=== PATIENT | female | born 2000 | race Caucasian/White ===

== ENCOUNTER 2024-10-22 09:29 | Emergency (ER) | payer SELFPAY ==
[2024-10-22 09:35] VITALS: BP 135/90; PULSE 112; RESP 18; TEMP 36.7; O2SAT 98; BMI 39.6
--- NOTE | 2024-10-22 09:39 | W.ED.CHESTPA ---
HPI - Chest Pain General: Chief Complaint: Chest Pain Stated Complaint: Chest Pain Time Seen by Provider: 10/22/24 09:30 History of Present Illness: 24 yo female patient presents to ER with complaints of chest pain, SOB and dizziness. Onset this am. Pt states she does not have any cariac hx or hx of PE. Pt is requesting urine preg test. Related Data Allergies Allergy/AdvReac Type Severity Reaction Status Date / Time No Known Allergies Allergy Verified 10/22/24 09:37 Review of Systems General: Reports: 10 or more systems reviewed and unremarkable except in HPI and below Physical Exam Const: COMMON NORMALS: no acute distress, average body habitus, patient oriented x3 and no limitations Neck/C-Spine: COMMON NORMALS: no JVD Chest: COMMONS NORMALS: normal inspection of the chest and normal palpation of entire chest wall Resp: COMMON NORMALS: normal respiratory effort, No retractions, No use of accessory muscles and clear to auscultation bilaterally AUSCULTATION: clear to auscultation bilaterally Cardio: COMMON NORMALS: no JVD, regular rate (tachy) and regular rhythm RATE: regular rate (tachy) RHYTHM: regular rhythm GI: COMMON NORMALS: Normal to inspection, nondistended, normoactive bowel sounds present, Soft to palpation and non-tender PALPATION: Yes Soft to palpation : COMMON NORMALS: Yes no CVA tenderness BLADDER/KIDNEY EXAM: Yes no CVA tenderness Back/Pelvis: COMMON NORMALS: no CVA tenderness Neuro: COMMON NORMALS: patient oriented x3 Skin: COMMON NORMALS: no rashes or lesions noted and turgor normal GENERAL SKIN EXAM: no rashes or lesions noted, elasticity normal and turgor normal Course Vital Signs: Vital signs: Vital Signs Temperature 98.1 F 10/22/24 09:35 Pulse Rate 97 10/22/24 10:06 Respiratory Rate 18 10/22/24 09:35 Blood Pressure 106/79 10/22/24 10:06 Pulse Oximetry 100 10/22/24 10:06 Oxygen Delivery Me thod Room Air 10/22/24 09:35 MDM - Chest Pain Medical Decision Making AMA Lab Data 10/22/24 09:30 10/22/24 09:30 Radiology Impressions Chest X-Ray 10/22/24 10:35 IMPRESSION: No acute findings. Laboratory Results WBC 21.75 10^3/uL (3.29-11.43) H 10/22/24 09:30 RBC 4.67 10^6/uL (3.85-5.65) 10/22/24 09:30 Hgb 13.60 g/dL (11.27-16.99) 10/22/24 09:30 Hct 40.9 % (36-47) 10/22/24 09:30 MCV 87.6 fl (85-98) 10/22/24 09:30 MCH 29.1 pg (27-33) 10/22/24 09:30 MCHC 33.3 g/dL (30-55) 10/22/24 09:30 RDW 13.6 % (12.1-15.1) 10/22/24 09:30 Plt Count 323 10^3/cmm (157-399) 10/22/24 09:30 MPV 10.6 fL (7.4-10.4) H 10/22/24 09:30 Neut % (Auto) 78.3 % 10/22/24 09:30 Lymph % (Auto) 11.8 % 10/22/24 09:30 [place] % (Auto) 8.6 % 10/22/24 09:30 Eos % (Auto) 0.4 % 10/22/24 09:30 Baso % (Auto) 0.3 % 10/22/24 09:30 Neut # (Auto) 17.05 10^3/uL (1.8-7.7) H 10/22/24 09:30 Lymph # (Auto) 2.6 10^3/uL (0.8-4.8) 10/22/24 09:30 [place] # (Auto) 1.9 10^3/uL (0.2-0.9) H 10/22/24 09:30 Eos # (Auto) 0.1 10^3/uL (0.0-0.8) 10/22/24 09:30 Baso # (Auto) 0.1 10^3/uL (0.0-0.1) 10/22/24 09:30 Nucleated RBC % (auto) 0 % 10/22/24 09:30 Nucleated RBCs # 0.0 /100WBC 10/22/24 09:30 D-Dimer <= 0.27 ug/mLFEU (0-0.59) 10/22/24 09:30 Sodium 135 mmol/L (136-145) L 10/22/24 09:30 Potassium 4.3 mmol/L (3.5-5.1) 10/22/24 09:30 Chloride 98 mmol/L (98-107) 10/22/24 09:30 Carbon Dioxide 24 mmol/L (22-29) 10/22/24 09:30 Anion Gap 17.3 (5-19) 10/22/24 09:30 BUN 9 mg/dL (6-20) 10/22/24 09:30 Creatinine 0.6 mg/dL (0.5-0.9) 10/22/24 09:30 GFR Calculation 120.8 mL/min (90-130) 10/22/24 09:30 Glucose 101 mg/dL (65-115) 10/22/24 09:30 Calculated Osmolality 279 mOsm/kg (285-295) L 10/22/24 09:30 Calcium 9.6 mg/dL (8.5-10.5) 10/22/24 09:30 Total Bilirubin 1.1 mg/dL (0.15-1.2) 10/22/24 09:30 AST 15 U/L (0-32) 10/22/24 09:30 ALT 30 U/L (0-33) 10/22/24 09:30 Alkaline Phosphatase 93 U/L (35-105) 10/22/24 09:30 Troponin T Baseline < 6 ng/L (0-10) 10/22/24 09:30 Troponin T 120 Minute < 6.0 ng/L (0-10) 10/22/24 11:50 Delta Troponin T 0 ABS# (0-10) 10/22/24 11:50 Total Protein 7.3 g/dL (6.6-8.7) 10/22/24 09:30 Albumin 4.5 g/dL (3.5-5.2) 10/22/24 09:30 Globulin 2.8 g/dL (1.3-4.6) 10/22/24 09:30 Lipase 22 U/L (13-60) 10/22/24 09:30 HCG, Qual Negative (Negative) 10/22/24 10:20 Urine Color [place] (Yellow) A 10/22/24 10:20 Urine Appearance Clear (CLEAR) 10/22/24 10:20 Urine pH 8.0 (5-7) A 10/22/24 10:20 Ur Specific [place] 1.015 (1.005-1.030) 10/22/24 10:20 Urine Protein Negative (Negative) 10/22/24 10:20 Urine Glucose (UA) Negative (Normal) 10/22/24 10:20 Urine Ketones Trace (Negative) 10/22/24 10:20 Urine Blood Negative (Negative) 10/22/24 10:20 Urine Nitrate Negative (Negative) 10/22/24 10:20 Urine Bilirubin Negative (Negative) 10/22/24 10:20 Urine Urobilinogen 1.0 mg/dL (Negative) 10/22/24 10:20 Ur Leukocyte Esterase Trace (Negative) A 10/22/24 10:20 Urine RBC 0-2 /hpf (0-2) 10/22/24 10:20 Urine WBC 6-10 /hpf (0-5) 10/22/24 10:20 Ur Squamous Epith Cells 6-10 /hpf (0-5) 10/22/24 10:20 Amorphous Sediment Not Reportable 10/22/24 10:20 Urine Bacteria 1+ /hpf (NONE) H 10/22/24 10:20 Hyaline Casts 1.21 /lpf 10/22/24 10:20 No radiology studies performed this visit Discharge Plan Discharge Patient Disposition: Left Against Medical Advice Clinical Impression: Chest pain Condition: Stable Print Language: Lebanese Coding Level of Care Code ED Aws Software Development Engineer for Kosta Cardoza
--- NOTE | 2024-10-22 09:49 | ECG_ITS ---
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 Measurements Intervals [place] Rate: 113 P: 19 NM: 124 QRS: 30 QRSD: 93 T: 16 QT: 297 QTc: 408 Interpretive Statements SINUS TACHYCARDIA ABNORMAL RHYTHM ECG No previous ECG available for comparison Electronically Signed On 10-22-2024 10:01:11 CDT by Ellis Miller M.D. [email or web address]
[2024-10-22 09:57] LABS: Hematocrit 40.9 % (36-47); Hemoglobin 13.60 g/dL (11.27-16.99); Mean Corpuscular HGB Conc 33.3 g/dL (30-55); Mean Corpuscular Hemoglobin 29.1 pg (27-33); Mean Corpuscular Volume 87.6 fl (85-98); Nucleated Red Blood Cells % 0 %; Platelet Count 323 10^3/cmm (157-399); Red Blood Count 4.67 10^6/uL (3.85-5.65); White Blood Count 21.75 10^3/uL (3.29-11.43)
[2024-10-22 10:06] VITALS: BP 106/79; PULSE 97; O2SAT 100
[2024-10-22 10:10] LABS: Troponin(5th) Baseline < 6 ng/L (0-10)
[2024-10-22 10:11] LABS: Alanine Aminotransferase 30 U/L (0-33); Albumin Level 4.5 g/dL (3.5-5.2); Alkaline Phosphatase 93 U/L (35-105); Anion Gap 17.3 (5-19); Aspartate Amino Transferase 15 U/L (0-32); Blood Urea Nitrogen 9 mg/dL (6-20); Calcium 9.6 mg/dL (8.5-10.5); Carbon Dioxide 24 mmol/L (22-29); Chloride 98 mmol/L (98-107); Creatinine Clr Calc Pharmacy 155.7398; Globulin 2.8 g/dL (1.3-4.6); Glucose 101 mg/dL (65-115); Lipase 22 U/L (13-60); Osmolality Calculated 279 mOsm/kg (285-295); Potassium 4.3 mmol/L (3.5-5.1); Sodium 135 mmol/L (136-145); Total Protein 7.3 g/dL (6.6-8.7)
[2024-10-22 10:28] LABS: Glucose Urine UA Negative (Normal); Nitrate Urine Negative (Negative); Specific Gravity, Urine 1.015 (1.005-1.030)
[2024-10-22 10:33] LABS: Add Urine Microscopic? YES
--- NOTE | 2024-10-22 10:35 | XRR_ITS ---
PROCEDURE INFORMATION: Exam: XR Chest Exam date and time: 10/22/2024 10:37 AM Age: 24 years old Clinical indication: Shortness of breath; Additional info: SOB TECHNIQUE: Imaging protocol: Radiologic exam of the chest. Views: 1 view. COMPARISON: No relevant prior studies available. FINDINGS: Lungs: Unremarkable. No consolidation. Pleural spaces: Unremarkable. No pleural effusion. No pneumothorax. Heart/Mediastinum: Unremarkable. No cardiomegaly. Bones/joints: Unremarkable. XR/XR chest 1V portable [id number] IMPRESSION: No acute findings.
[2024-10-22 12:11] LABS: Troponin 5 2HR < 6.0 ng/L (0-10); Troponin 5 2HR Delta 0 ABS# (0-10)
--- NOTE | 2024-10-22 12:16 | ECG_ITS ---
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 Measurements Intervals [place] Rate: 111 P: 36 TN: 140 QRS: 40 QRSD: 96 T: 12 QT: 304 QTc: 414 Interpretive Statements SINUS TACHYCARDIA Compared to ECG 10/22/2024 09:32:42 No significant changes Electronically Signed On 10-22-2024 15:00:27 CDT by Damián Higgins M.D. [id number]
[2024-10-22 13:04] LABS: HCG Qualitative Urine. Negative (Negative)
--- NOTE | 2024-10-22 22:13 | ED_ITS ---
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 Laboratory Results WBC 21.75 10^3/uL (3.29-11.43) H 10/22/24 09:30 RBC 4.67 10^6/uL (3.85-5.65) 10/22/24 09:30 Hgb 13.60 g/dL (11.27-16.99) 10/22/24 09:30 Hct 40.9 % (36-47) 10/22/24 09:30 MCV 87.6 fl (85-98) 10/22/24 09:30 MCH 29.1 pg (27-33) 10/22/24 09:30 MCHC 33.3 g/dL (30-55) 10/22/24 09:30 RDW 13.6 % (12.1-15.1) 10/22/24 09:30 Plt Count 323 10^3/cmm (157-399) 10/22/24 09:30 MPV 10.6 fL (7.4-10.4) H 10/22/24 09:30 Neut % (Auto) 78.3 % 10/22/24 09:30 Lymph % (Auto) 11.8 % 10/22/24 09:30 [place] % (Auto) 8.6 % 10/22/24 09:30 Eos % (Auto) 0.4 % 10/22/24 09:30 Baso % (Auto) 0.3 % 10/22/24 09:30 Neut # (Auto) 17.05 10^3/uL (1.8-7.7) H 10/22/24 09:30 Lymph # (Auto) 2.6 10^3/uL (0.8-4.8) 10/22/24 09:30 [place] # (Auto) 1.9 10^3/uL (0.2-0.9) H 10/22/24 09:30 Eos # (Auto) 0.1 10^3/uL (0.0-0.8) 10/22/24 09:30 Baso # (Auto) 0.1 10^3/uL (0.0-0.1) 10/22/24 09:30 Nucleated RBC % (auto) 0 % 10/22/24 09:30 Nucleated RBCs # 0.0 /100WBC 10/22/24 09:30 D-Dimer <= 0.27 ug/mLFEU (0-0.59) 10/22/24 09:30 Sodium 135 mmol/L (136-145) L 10/22/24 09:30 Potassium 4.3 mmol/L (3.5-5.1) 10/22/24 09:30 Chloride 98 mmol/L (98-107) 10/22/24 09:30 Carbon Dioxide 24 mmol/L (22-29) 10/22/24 09:30 Anion Gap 17.3 (5-19) 10/22/24 09:30 BUN 9 mg/dL (6-20) 10/22/24 09:30 Creatinine 0.6 mg/dL (0.5-0.9) 10/22/24 09:30 GFR Calculation 120.8 mL/min (90-130) 10/22/24 09:30 Glucose 101 mg/dL (65-115) 10/22/24 09:30 Calculated Osmolality 279 mOsm/kg (285-295) L 10/22/24 09:30 Calcium 9.6 mg/dL (8.5-10.5) 10/22/24 09:30 Total Bilirubin 1.1 mg/dL (0.15-1.2) 10/22/24 09:30 AST 15 U/L (0-32) 10/22/24 09:30 ALT 30 U/L (0-33) 10/22/24 09:30 Alkaline Phosphatase 93 U/L (35-105) 10/22/24 09:30 Troponin T Baseline < 6 ng/L (0-10) 10/22/24 09:30 Troponin T 120 Minute < 6.0 ng/L (0-10) 10/22/24 11:50 Delta Troponin T 0 ABS# (0-10) 10/22/24 11:50 Total Protein 7.3 g/dL (6.6-8.7) 10/22/24 09:30 Albumin 4.5 g/dL (3.5-5.2) 10/22/24 09:30 Globulin 2.8 g/dL (1.3-4.6) 10/22/24 09:30 Lipase 22 U/L (13-60) 10/22/24 09:30 HCG, Qual Negative (Negative) 10/22/24 10:20 Urine Color [place] (Yellow) A 10/22/24 10:20 Urine Appearance Clear (CLEAR) 10/22/24 10:20 Urine pH 8.0 (5-7) A 10/22/24 10:20 Ur Specific [place] 1.015 (1.005-1.030) 10/22/24 10:20 Urine Protein Negative (Negative) 10/22/24 10:20 Urine Glucose (UA) Negative (Normal) 10/22/24 10:20 Urine Ketones Trace (Negative) 10/22/24 10:20 Urine Blood Negative (Negative) 10/22/24 10:20 Urine Nitrate Negative (Negative) 10/22/24 10:20 Urine Bilirubin Negative (Negative) 10/22/24 10:20 Urine Urobilinogen 1.0 mg/dL (Negative) 10/22/24 10:20 Ur Leukocyte Esterase Trace (Negative) A 10/22/24 10:20 Urine RBC 0-2 /hpf (0-2) 10/22/24 10:20 Urine WBC 6-10 /hpf (0-5) 10/22/24 10:20 Ur Squamous Epith Cells 6-10 /hpf (0-5) 10/22/24 10:20 Amorphous Sediment Not Reportable 10/22/24 10:20 Urine Bacteria 1+ /hpf (NONE) H 10/22/24 10:20 Hyaline Casts 1.21 /lpf 10/22/24 10:20 No radiology studies performed this visit Discharge Plan Discharge Patient Disposition: Left Against Medical Advice Clinical Impression: Chest pain Condition: Stable Print Language: Paraguayan Coding Level of Care Code ED Tablet Tester for Kosta Cardoza
== END 2024-10-22 13:35 | disposition left against medical advice (07) ==
PROVIDERS: Emergency Provider Registered Nurse
DX: R07.9 Chest pain, unspecified (principal); Z53.29 Procedure and treatment not carried out because of patient's decision for other reasons
CPT/HCPCS: 36415; 71045; 80053; 81001; 81025; 83690; 84484; 85025; 85378; 93005; 99285

== ENCOUNTER 2024-10-24 16:17 | Emergency (ER) | payer SELFPAY ==
[2024-10-24 16:55] VITALS: BP 112/57; PULSE 108; RESP 16; TEMP 37.4; O2SAT 98; BMI 40.2
[2024-10-24 18:08] LABS: Rapid Strep A Test Negative (Negative)
[2024-10-24 18:35] VITALS: BP 108/81; PULSE 100; RESP 16; TEMP 37.4; O2SAT 97
--- NOTE | 2024-10-24 22:32 | ED_ITS ---
HPI - Pediatric SOB/Dyspnea General: Chief Complaint: Upper Respiratory Infection Stated Complaint: sore throat Time Seen by Provider: 10/24/24 18:26 History of Present Illness: 24-year-old female patient presents to [facility] emergency department department complaining of sore throat with white patches. Patient states she has been running a low-grade fever. Patient denies any other symptoms patient denies any cough or congestion. Related Data Previous Rx's ?Medication ?Instructions ?Recorded amoxicillin 500 mg capsule 500 mg PO BID 10 days #20 c aps 10/24/24 Allergies Allergy/AdvReac Type Severity Reaction Status Date / Time No Known Allergies Allergy Verified 10/22/24 09:37 [facility] ED Female Reproductive History: Date of last menstrual period: 09/30/24 Pediatric Exam Const: Constitutional General: cooperative, healthy appearing, comfortable, no acute distress, well developed, alert and awake HENMT: Head: normal to inspection, normocephalic and atraumatic Ears: hearing grossly normal bilaterally, external ears normal and TM's normal bilaterally Nose: Normal external nose present and Normal nares present Face and Sinuses: normal facial exam and sinuses nontender Mouth: Normal oral and palatal mucosa present Throat: uvula midline and abnormal tonsil on the right erythema and exudates; tonsils abnormal Resp: Effort & Inspection: normal respiratory effort Auscultation: clear to auscultation bilaterally Cardio: Rate: regular rate Rhythm: regular rhythm Course Vital Signs: Vital signs: Vital Signs Temperature 99.4 F 10/24/24 18:35 Pulse Rate 100 10/24/24 18:35 Respiratory Rate 16 10/24/24 18:35 Blood Pressure 108/81 10/24/24 18:35 Pulse Oximetry 97 10/24/24 18:35 Oxygen Delivery Me thod Room Air 10/24/24 18:35 Medical Decision Making Medical Decision Making Patient is well appearing non toxic and in no acute distress. 24-year-old female patient presents to the emergency department department complaining of sore throat with white patches. Patient states she has been running a low-grade fever. Patient denies any other symptoms patient denies any cough or congestion. Pts findings are c/w tonsilitis given the degree of erythema and exedate and fever I will treat with antibiotics. there was not evidence of peritonsilar abscess and patient is managing secretions there is no evidence of hypoxia or meningeal signs. Lab Data Laboratory Results Group A Strep Rapid Negative (Negative) 10/24/24 17:03 No radiology studies performed this visit Discharge Plan Discharge Patient Disposition: Home Clinical Impression: Acute bacterial tonsillitis Condition: Stable Prescriptions: New amoxicillin 500 mg capsule 500 mg PO BID 10 Days Qty: 20 0RF Discharge Orders: Discharge ED (Routine); Ordered 10/24/24 Ordered By: Marylou Draper Discharge Diet: Advance as tolerated Discharge Activity: Increase activity as tolerated Patient Instructions: Strep Throat (DC), Opioid Safety, Pain Management, Patient Portal & Norma Instructions Activity Restrictions/Additional Instructions: Take meds as prescribed Return to ER if all your doctor if: You have a fever. You have a rash or ear pain. You have green, yellow-brown, or bloody mucus when you cough or blow your nose. You are not able to drink anything. You have questions or concerns about your condition or care. Follow up with PCP Print Language: Bahraini Coding Level of Care Code ED General Dentist/Owner for Kosta Cardoza
== END 2024-10-24 19:08 | disposition home or self-care (01) ==
PROVIDERS: Family Medicine; Emergency Provider Registered Nurse
DX: J03.90 Acute tonsillitis, unspecified (principal)
CPT/HCPCS: 87081; 87880; 99283; J9999

== ENCOUNTER 2024-11-07 07:06 | Emergency (ER) | payer SELFPAY ==
[2024-11-07 07:27] VITALS: BP 124/94; PULSE 87; RESP 18; TEMP 36.8; O2SAT 99
[2024-11-07] MEDS: tetracaine 0.5% Op Soln 4 mL Btl 1 DROP EYE-BOTH (07:54)
--- NOTE | 2024-11-07 07:56 | W.ED.EYEPROB ---
HPI - Eye Problem General: Chief complaint: Eye Problems Stated complaint: right eye pain Time Seen by Provider: 11/07/24 07:13 History of Present Illness: 24-year-old female presents emergency room with right eye pain for the last 3 days mildly reddened does not remember getting any foreign bodies in it no purulent drainage. Has been tearing. Associated symptoms: Denies fever(s) Related Data Previous Rx's ?Medication ?Instructions ?Recorded tobramycin 0.3 % eye drops 2 drp ophthalmic (eye) Q4H 5 days 11/07/24 #5 mL Allergies Allergy/AdvReac Type Severity Reaction Status Date / Time No Known Allergies Allergy Verified 10/22/24 09:37 Review of Systems Const: Denies: fever(s) or chills Eyes: Reports: photophobia, eye discomfort and eye redness; Denies: change in vision Physical Exam Const: COMMON NORMALS: no acute distress GENERAL APPEARANCE: cooperative and comfortable ORIENTATION/CONSCIOUSNESS: Yes awake, Yes oriented to person, Yes oriented to place and Yes oriented to time HENMT: COMMON NORMALS: normocephalic, atraumatic and hearing grossly normal bilaterally HEAD & SCALP: normocephalic and atraumatic Eye: OTHER: Mild scleral injection no chemosis no purulent drainage. Under direct visualization no foreign bodies eversion of the eyelids tetracaine applied fluorescein then applied no corneal abrasions noted test test Resp: COMMON NORMALS: normal respiratory effort Neuro: SENSORIUM/ORIENTATION: Yes oriented to person, Yes oriented to place and Yes oriented to time Skin: COMMON NORMALS: no rashes or lesions noted GENERAL SKIN EXAM: no rashes or lesions noted Course Vital Signs: Vital signs: Vital Signs Temperature 98.2 F 11/07/24 07:27 Pulse Rate 87 11/07/24 08:12 Respiratory Rate 18 11/07/24 07:27 Blood Pressure 124/94 11/07/24 08:12 Pulse Oximetry 99 11/07/24 08:12 MDM - Eye Problem Medical Decision Making Discharge home with Tobra mycin drops 2 drops every 4 times a day while awake and to follow-up with improving Medical Records I reviewed the patient's medical records. Lab Data I reviewed the patient's lab results. No radiology studies performed this visit Discharge Plan Discharge Patient Disposition: Home Clinical Impression: Bacterial conjunctivitis Condition: Stable Prescriptions: New tobramycin 0.3 % drops 2 drp ophthalmic (eye) Q4H 5 Days Qty: 5 0RF Rx Instructions: Right eye Discharge Orders: Discharge ED (Routine); Ordered 11/07/24 Ordered By: Duc Tillman Patient Instructions: Opioid Safety, Pain Management, Patient Portal & Norma Instructions Activity Restrictions/Additional Instructions: [facility]. It is very important that you follow up as instructed or that you return to the Emergency Department should you have concerns or if your condition changes or worsens in any way. You are seen in the emergency room with complaints of redness in the eye. There is no foreign bodies or abrasions noted on exam plight antibiotic drops every 4 hours while awake for 5 days recheck with ophthalmology optometry if not improving or changes Print Language: Croatian Coding Level of Care Code ED Customer Care Assistant for Kosta Cardoza
[2024-11-07 08:12] VITALS: BP 124/94; PULSE 87; O2SAT 99
== END 2024-11-07 08:13 | disposition home or self-care (01) ==
PROVIDERS: Emergency Provider Family Medicine
DX: H10.89 Other conjunctivitis (principal)
CPT/HCPCS: 99283; J9999

== ENCOUNTER 2025-01-25 19:08 | Emergency (ER) | payer SELFPAY ==
[2025-01-25 19:13] VITALS: BP 135/97; PULSE 86; RESP 16; O2SAT 98; BMI 36.0
--- NOTE | 2025-01-25 19:24 | ED_ITS ---
HPI - Abdominal Pain 2 General: Chief Complaint: Abdominal Pain Stated Complaint: , cramping unknown how far Time Seen by Provider: 01/25/25 19:20 Source: patient Mode of arrival: ambulatory Limitations: no limitations History of Present Illness: 24-year-old female states she believes s he is 3 months states that over the last few days she has been having some diffuse abdominal cramping states cramping is roughly 4 out of 10 she denies any vomiting denies any vaginal bleeding denies any worsening from factors. Related Data Allergies Allergy/AdvReac Type Severity Reaction Status Date / Time No Known Allergies Allergy Verified 10/22/24 09:37 Review of Systems 2 GI: Reports: abdominal pain Physical Exam 2 Const: COMMON NORMALS: no acute distress, patient oriented x3 and healthy appearing HENMT: COMMON NORMALS: normocephalic and atraumatic HEAD & SCALP: n ormocephalic and atraumatic Eye: COMMON NORMALS: conjunctivae normal CONJUNCTIVA: Yes conjunctivae normal Neck/C-Spine: COMMON NORMALS: full ROM and supple Chest: COMMONS NORMALS: normal inspection of the chest Resp: COMMON NORMALS: normal respiratory effort Cardio: COMMON NORMALS: regular rate, regular rhythm and No murmurs present (Cardio) RATE: regular rate RHYTHM: regular rhythm GI: COMMON NORMALS: Normal to inspection, nondistended, normoactive bowel sounds present, Soft to palpation, non-tender and no masses PALPATION: Yes Soft to palpation Extremity: COMMON NORMALS: normal to inspection and full ROM Neuro: COMMON NORMALS: patient oriented x3, moves all extremities and no focal motor deficits Psych: COMMON NORMALS: mental status grossly normal, Normal thought process present and cooperative THOUGHT PROCESS: Normal thought process present Skin: COMMON NORMALS: no rashes or lesions noted and no wounds GENERAL SKIN EXAM: no rashes or lesions noted Course 2 Vital Signs: Vital signs: Vital Signs Temperature 98.9 F 01/25/25 21:02 Pulse Rate 86 01/25/25 19:13 Respiratory Rate 16 01/25/25 19:13 Blood Pressure 135/97 01/25/25 19:13 Pulse Oximetry 98 01/25/25 19:13 Oxygen Delivery Me thod Room Air 01/25/25 19:13 MDM - Abdominal Pain Medical Decision Making Patient presents for diffuse abdominal pain along with concerns of being . Differential includes appendicitis, diverticulitis, pancreatitis, ectopic . These were all ruled out here. Her exam is benign with no tenderness on exam she has no signs of appendicitis diverticulitis or pancreatitis. White count electrolytes lipase are all normal. Her test here is negative. No imaging is required at this time she is stable for discharge pain-free currently she is follow-up her PCP and return if worsening she understands agrees to plan Medical Records I reviewed the patient's medical records. Lab Data I reviewed the patient's lab results. 01/25/25 19:48 01/25/25 19:48 Labs/Radiology: Laboratory Results WBC 9.87 10^3/uL (3.29-11.43) 01/25/25 19:48 RBC 4.41 10^6/uL (3.85-5.65) 01/25/25 19:48 Hgb 12.60 g/dL (11.27-16.99) 01/25/25 19:48 Hct 37.3 % (36-47) 01/25/25 19:48 MCV 84.6 fl (85-98) L 01/25/25 19:48 MCH 28.6 pg (27-33) 01/25/25 19:48 MCHC 33.8 g/dL (30-55) 01/25/25 19:48 RDW 13.6 % (12.1-15.1) 01/25/25 19:48 Plt Count 316 10^3/cmm (157-399) 01/25/25 19:48 MPV 10.4 fL (7.4-10.4) 01/25/25 19:48 Lymph % (Auto) Not Reportable 01/25/25 19:48 [place] % (Auto) Not Reportable 01/25/25 19:48 Lymph # (Auto) Not Reportable 01/25/25 19:48 [place] # (Auto) Not Reportable 01/25/25 19:48 Sodium 140 mmol/L (136-145) 01/25/25 19:48 Potassium 3.4 mmol/L (3.5-5.1) L 01/25/25 19:48 Chloride 106 mmol/L (98-107) 01/25/25 19:48 Carbon Dioxide 21 mmol/L (22-29) L 01/25/25 19:48 Anion Gap 16.4 (5-19) 01/25/25 19:48 BUN 8 mg/dL (6-20) 01/25/25 19:48 Creatinine 0.7 mg/dL (0.5-0.9) 01/25/25 19:48 GFR Calculation 101.1 mL/min (90-130) 01/25/25 19:48 Glucose 107 mg/dL (65-115) 01/25/25 19:48 Calculated Osmolality 289 mOsm/kg (285-295) 01/25/25 19:48 Calcium 9.3 mg/dL (8.5-10.5) 01/25/25 19:48 Total Bilirubin 0.6 mg/dL (0.15-1.2) 01/25/25 19:48 AST 15 U/L (0-32) 01/25/25 19:48 ALT 17 U/L (0-33) 01/25/25 19:48 Alkaline Phosphatase 76 U/L (35-105) 01/25/25 19:48 Total Protein 7.5 g/dL (6.6-8.7) 01/25/25 19:48 Albumin 4.3 g/dL (3.5-5.2) 01/25/25 19:48 Globulin 3.2 g/dL (1.3-4.6) 01/25/25 19:48 Lipase 38 U/L (13-60) 01/25/25 19:48 Ser , Semi-Qnt < 1.00 mIU/mL 01/25/25 19:48 Urine Color Dark yellow (Yellow) A 01/25/25 19:35 Urine Appearance Cloudy (CLEAR) A 01/25/25 19:35 Urine pH 6.0 (5-7) 01/25/25 19:35 Ur Specific [place] 1.025 (1.005-1.030) 01/25/25 19:35 Urine Protein Trace (Negative) A 01/25/25 19:35 Urine Glucose (UA) Negative (Normal) 01/25/25 19:35 Urine Ketones 1+ (Negative) H 01/25/25 19:35 Urine Blood Negative (Negative) 01/25/25 19:35 Urine Nitrate Negative (Negative) 01/25/25 19:35 Urine Bilirubin 1+ (Negative) H 01/25/25 19:35 Urine Urobilinogen 4.0 mg/dL (Negative) H 01/25/25 19:35 Ur Leukocyte Esterase Trace (Negative) A 01/25/25 19:35 Urine RBC 0-2 /hpf (0-2) 01/25/25 19:35 Urine WBC 0-5 /hpf (0-5) 01/25/25 19:35 Ur Squamous Epith Cells 10-15 /hpf (0-5) H 01/25/25 19:35 Calcium Oxalate Crystal 15-25 /hpf H 01/25/25 19:35 Amorphous Sediment 1+ /hpf 01/25/25 19:35 Urine Bacteria Trace /hpf (NONE) 01/25/25 19:35 Urine Mucus 4+ /hpf 01/25/25 19:35 Blood Type A Positive 01/25/25 20:11 Rho(D) Type Rh positive 01/25/25 20:11 No radiology studies performed this visit Discharge Plan Discharge Patient Disposition: Home Clinical Impression: Abdominal pain Qualifiers: Abdominal location: generalized Qualified Code(s): R10.84 - Generalized abdominal pain Condition: Stable Discharge Orders: Discharge ED (Routine); Ordered 01/25/25 Ordered By: Dc Solis Discharge Diet: Advance as tolerated Discharge Activity: Resume usual activity Patient Instructions: Abdominal Pain (ED) Print Language: Citizen Of [place] Coding Level of Care Code ED Motion Picture Projectionist Apprentice for Kosta Cardoza
[2025-01-25 19:56] LABS: Hematocrit 37.3 % (36-47); Hemoglobin 12.60 g/dL (11.27-16.99); Mean Corpuscular HGB Conc 33.8 g/dL (30-55); Mean Corpuscular Hemoglobin 28.6 pg (27-33); Mean Corpuscular Volume 84.6 fl (85-98); Platelet Count 316 10^3/cmm (157-399); Red Blood Count 4.41 10^6/uL (3.85-5.65); White Blood Count 9.87 10^3/uL (3.29-11.43)
[2025-01-25 20:05] LABS: Glucose Urine UA Negative (Normal); Nitrate Urine Negative (Negative); Specific Gravity, Urine 1.025 (1.005-1.030)
[2025-01-25 20:32] LABS: Alanine Aminotransferase 17 U/L (0-33); Albumin Level 4.3 g/dL (3.5-5.2); Alkaline Phosphatase 76 U/L (35-105); Anion Gap 16.4 (5-19); Aspartate Amino Transferase 15 U/L (0-32); Blood Urea Nitrogen 8 mg/dL (6-20); Calcium 9.3 mg/dL (8.5-10.5); Carbon Dioxide 21 mmol/L (22-29); Chloride 106 mmol/L (98-107); Creatinine Clr Calc Pharmacy 126.5145; Globulin 3.2 g/dL (1.3-4.6); Glucose 107 mg/dL (65-115); Osmolality Calculated 289 mOsm/kg (285-295); Potassium 3.4 mmol/L (3.5-5.1); Sodium 140 mmol/L (136-145); Total Protein 7.5 g/dL (6.6-8.7)
[2025-01-25 20:56] LABS: Add Urine Microscopic? YES; UA Manual Slide Review YES
[2025-01-25 21:02] VITALS: TEMP 37.2
[2025-01-25 21:03] LABS: Slide Review Slide Review Perform
[2025-01-25 21:07] LABS: Lipase 38 U/L (13-60)
[2025-01-25 21:38] LABS: Absolute Segmented Neutrophil 3.5 10/cmm (1.6-7.1); Band Neutrophils Absolute 0.1 10^3/cmm (0.0-1.2); Total Cells Counted 100 (0-100)
[2025-01-25 21:39] LABS: Atypical Lymphs 14.0 % (0-5)
== END 2025-01-25 21:46 | disposition home or self-care (01) ==
PROVIDERS: Emergency Provider Emergency Medicine
DX: R10.84 Generalized abdominal pain (principal); Z32.02 Encounter for pregnancy test, result negative
CPT/HCPCS: 36415; 80053; 81001; 83690; 84702; 85007; 85025; 86850; 86900; 99283